=== PATIENT | female | born 1995 | race Caucasian/White ===

== ENCOUNTER 2017-11-01 17:53 | Emergency (ER) | payer MEDICAID ==
--- NOTE | 2017-11-01 18:02 | EDPHY ---
H & P Smoking Status: Never smoked Time Seen by Provider: 11/01/17 18:00 HPI/ROS: CHIEF COMPLAINT: Right elbow pain HISTORY OF PRESENT ILLNESS: Patient is a 21-year-old female with no significant past medical history who was at the climbing gym just prior to arrival when she slipped off all climbing wall and fell backwards onto an outstretched arm landing on her right palm. She reports right elbow pain instantly after the impact. She denies any shoulder neck wrist or hand pain. She does report mild paresthesias in all 5 digits of the right hand. She has no prior injury to the extremity. She has tried no medication to alleviate her pain. She reports pain is worse with flexion extension of the right elbow. She is able to ambulate and denies any lower extremity injuries. REVIEW OF SYSTEMS: Constitutional: No fever, no chills. Eyes: No discharge. ENT: No sore throat. Cardiovascular: No chest pain, no palpitations. Respiratory: No cough, no shortness of breath. Gastrointestinal: No abdominal pain, no vomiting. Genitourinary: No hematuria. Musculoskeletal: No back pain. Skin: No rashes. Neurological: No headache. (Kike Buckner) Physical Exam: General Appearance: Alert and no distress. Eyes: Pupils equal and round no injection. Respiratory: Chest is nontender, lungs are clear to auscultation. Cardiac: regular rate and rhythm. Gastrointestinal: Abdomen is soft and nontender, no masses, bowel sounds normal. Musculoskeletal: Neck is supple and nontender. Extremities tenderness over the medial epicondyle but no deformity of the right elbow and no ecchymosis. No tenderness main hand wrist or forearm or shoulder. Full range of motion of the shoulder and wrist. Cap refill less than 3 sec in all 5 digits. Skin: No rashes or lesions. (Kike Buckner) Constitutional: Initial Vital Signs Temperature (C) 36.5 C 11/01/17 17:54 Heart Rate 61 11/01/17 17:54 Respiratory Rate 16 11/01/17 17:54 Blood Pressure 90/59 L 11/01/17 17:54 O2 Sat (%) 98 11/01/17 17:54 O2 Delivery Mode Room Air Allergies/Adverse Reactions: No Known Allergies Allergy (Unverified 11/01/17 17:57) Home Medications: Medication Instructions Recorded NK [No Known Home Meds] 11/01/17 Medical Decision Making ED Course/Re-evaluation: 21-year-old female here with right elbow pain after fall from a climbing wall. She is likely suffering from possible subluxation of the elbow but there is no bony injury or dislocation seen on x-ray. She does have a small joint effusion so was placed in a splint and will follow up with Orthopedics for definitive treatment and evaluation. (Kike Buckner) - Data Points Medications Given: Discontinued Medications Ibuprofen (Motrin) 600 mg PO EDNOW ONE Stop: 11/01/17 18:07 Last Admin: 11/01/17 18:15 Dose: 600 mg Ondansetron HCl (Zofran Odt) 4 mg PO ONCE ONE Stop: 11/01/17 18:07 Last Admin: 11/01/17 18:14 Dose: 4 mg Departure - Departure Disposition: Home, Routine, Self-Care Clinical Impression: Effusion of elbow joint, right, Sprain of elbow, right Condition: Good Instructions: Elbow Sprain (ED) Additional Instructions: There is no fracture or dislocation seen on you're x-rays today but there is a small amount of blood seen near the joint on her x-ray. I am placing on a splint that she will wear to follow up with Orthopedics. Please call their office as soon as possible to schedule appointment within the next 2-3 days for further evaluation. Use ice and ibuprofen and Tylenol as needed for pain. Return to the ER for numbness, discoloration or other worrisome symptoms. Referrals: NONE *PRIMARY CARE P,. [Primary Care Provider] - As per Instructions Roger Iqbal MD [Medical Doctor] - As per Instructions
[2017-11-01] MEDS ORDERED: IBUPROFEN 600 MG TAB PO ONE (18:06)
[2017-11-01] MEDS ORDERED: ONDANSETRON DISINTEGRATING 4 MG TAB PO ONE (18:06)
[2017-11-01 19:38] VITALS: BP 124/87
== END 2017-11-01 19:47 | disposition home or self-care (01) ==
DX: S53.401A Unspecified sprain of right elbow, initial encounter (principal); W17.89XA Other fall from one level to another, initial encounter; Y93.39 Activity, other involving climbing, rappelling and jumping off; Y92.89 Other specified places as the place of occurrence of the external cause
CPT/HCPCS: A4565